=== PATIENT | female | born 1950 | race Native Hawaiian/Other Pacific Islander ===

== ENCOUNTER → 2017-01-16 | Outpatient (CLI) | payer MEDICARE ==
[2017-01-16 17:20] LABS: Basophils # (A) 0.1 k/uL (0-0.2); Basophils % (A) 1 %; CH 30.5; CHCM 31.9; Eosinophils # (A) 0.2 k/uL (0-0.7); Eosinophils % (A) 3 %; HCT 47.2 % (34.0-46.0); HDW 2.19; HGB 14.5 gm/dL (11.4-16.0); Luc # (Auto) 0.09; Luc % (Auto) 2; Lymphocytes % (A) 34 %; MCH 29.5 pg (25.0-35.0); MCHC 30.7 g/dL (31.0-37.0); MCV 96.1 fL (80.0-100.0); Mean Platelet Volume 8.7; Monocytes # (A) 0.3 k/uL (0-1.0); Monocytes % (A) 5 %; Neutrophils # (A) 3.3 k/uL (1.3-7.7); Neutrophils % (A) 56 %; RBC 4.91 m/uL (3.80-5.40); RDW 13.9 % (11.5-15.5); WBC (Perox) 5.89
[2017-01-16 17:23] LABS: ALT 32 U/L (9-52); AST 24 U/L (14-36); Alkaline Phosphatase 103 U/L (38-126); Anion Gap 14 mmol/L; Blood Urea Nitrogen 22 mg/dL (7-17); Calcium 9.3 mg/dL (8.4-10.2); Carbon Dioxide 21 mmol/L (22-30); Chloride 110 mmol/L (98-107); Cholesterol 171 mg/dL (<200); Glucose 102 mg/dL (74-99); HDL Cholesterol 47 mg/dL (40-60); Non-African American GFR(MDRD) >60 (>60 ml/min/1.73 sqM); Potassium 4.5 mmol/L (3.5-5.1); Sodium 145 mmol/L (137-145); Total Bilirubin 0.7 mg/dL (0.2-1.3); Total Protein 7.1 g/dL (6.3-8.2)
== END ==
LOC: MMGSC 10:22
PROVIDERS: ATTEND Family Medicine
DX: Z00.00 Encounter for general adult medical examination without abnormal findings (principal); E55.9 Vitamin D deficiency, unspecified
CPT/HCPCS: 36415; 80053; 80061; 82306; 84439; 84443; 85025

== ENCOUNTER → 2020-04-16 | Outpatient (CLI) | payer MEDICARE ==
--- NOTE | 2020-04-16 10:16 | US ---
EXAMINATION TYPE: US carotid duplex BILAT DATE OF EXAM: 04/16/2020 COMPARISON: NONE CLINICAL HISTORY: H53.8 Visual disturbance, R07.89 Atypical chest pa. Visual disturbance, chest pain EXAM MEASUREMENTS: RIGHT: Peak Systolic Velocity (PSV) cm/sec ----- Right CCA: 87.7 ----- Right ICA: 110.9 ----- Right ECA: 104.4 ICA/CCA ratio: 1.3 RIGHT: End Diastole cm/sec ----- Right CCA: 29.3 ----- Right ICA: 44.8 ----- Right ECA: 18.9 LEFT: Peak Systolic Velocity (PSV) cm/sec ----- Left CCA: 90.1 ----- Left ICA: 89.9 ----- Left ECA: 46.1 ICA/CCA ratio: 1.0 LEFT: End Diastole cm/sec ----- Left CCA: 27.2 ----- Left ICA: 27.1 ----- Left ECA: 6.8 VERTEBRALS (direction of flow): Right Vertebral: Antegrade Left Vertebral: Antegrade Rhythm: Normal Grayscale, color Doppler, spectral Doppler imaging performed. Waveform analysis does not show signifi cant stenosis of the internal carotid arteries. No significant stenosis seen, Left ICA and ECA dive d own, difficult to visualize well IMPRESSION: No hemodynamic significant stenosis of the proximal internal carotid arteries by Doppler criteria, an indirect measurement of carotid stenosis Criteria for Assigning % of Stenosis / Diameter reduction (Estimation based on the indirect measurements of the internal carotid artery velocities (ICA PSV). 1. Normal (no stenosis)=ICA PSV < 125 cm/s: ratio < 2.0: ICA EDV<40 cm/s. 2. Less than 50% stenosis=ICA PSV < 125 cm/s: ratio < 2.0: ICA EDV<40 cm/s. 3. 50 to 69% stenosis=ICA PSV of 125 to 230 cm/s: ration 2.0 ? 4.0: ICA EDV 40-100 cm/s. 4. Greater than 70% stenosis to near occlusion= ICA PSV > 230 cm/s: ratio > 4.0: ICA EDV > 100 cm/s. 5. Near occlusion= ICA PSV velocities may be low or undetectable: variable ratio and ICA EDV. 6. Total occlusion=unable to detect flow.
--- NOTE | 2020-04-16 15:44 | P.STRESS ---
- Stress Test Note Stress Test Results/Findings: Exam Performed: stress echo exercise Exam Date: 04/16/20 Reason for Exam: CHEST PAIN Height: 5 ft 4 in Weight: 81.647 kg Protocol: ALEJANDRO Stage: 2 Duration of Exercise: 6:00 Resting Heart Rate: 60 Resting Blood Pressure: 116/57 Maximum Achieved Heart Rate: 141 Maximum Achieved Blood Pressure: 152/101 85% PMHR: 127 100% PMHR: 149 METS: 7.1 Technologist Comment: Stress Test Results/Findings: Baseline heart rate 60 beats a minute Baseline blood pressure 116/57 mmHg Baseline twelve-lead ECG shows sinus rhythm normal ST segments Patient exercised on a Alejandro protocol for 6 minutes achieving a peak heart rate of 141 beats a minute. Normal blood pressure response, systolic Diastolic blood pressure is about 91 mmHg Rate related right bundle branch block aberrancy left anterior fascicular block and a heart rate of about 120 beats a minute During recovery. The heart rate fell below 100 beats a minute normalization of care was noted No definite ECG was for ischemia Baseline 2-D echo showed normal LV systolic function without segmental wall motion abnormalities At peak exercise is excellent augmentation of overall LV contractility without development of any wall motion amenities @Recovery regional global LV systolic function with normal Impression Average exercise capacity, shortness of breath with exertion Right bundle branch block aberrancy at a heart rate of 120 beats a minute No ECG or echocardiographic evidence for ischemia
== END | disposition home or self-care (01) ==
LOC: RADUSMAIN 09:08
PROVIDERS: ATTEND Family Medicine
DX: I45.2 Bifascicular block (principal); G44.209 Tension-type headache, unspecified, not intractable; H53.8 Other visual disturbances
CPT/HCPCS: 93351; 93880

== ENCOUNTER → 2024-08-30 | Outpatient (CLI) | payer MEDICARE ==
--- NOTE | 2024-08-30 15:38 | CT ---
EXAMINATION TYPE: CT wrist LT wo con DATE OF EXAM: 08/30/2024 COMPARISON: None CLINICAL INDICATION: Female, 73 years old with history of S52.572A OTH INTARTIC FRACTURE OF LOWER END OF LEF; PHH, fracture, left wrist CT DLP: 102.2 mGycm Automated exposure control for dose reduction was used. FINDINGS: There is a mildly displaced markedly comminuted intra-articular fracture of the distal left radius. T here is a nondisplaced fracture of the ulnar styloid. The carpal bones and articulations are normal. There is no radiopaque foreign body. IMPRESSION: Markedly comminuted mildly displaced intra-articular fracture of the distal left radius. Mildly disp laced fracture of the ulnar styloid process. [facility], , 08/30/2024 3:36 PM
== END | disposition home or self-care (01) ==
LOC: RADCTMAIN 13:28
PROVIDERS: ATTEND Orthopaedic Surgery
DX: S52.572A Other intraarticular fracture of lower end of left radius, initial encounter for closed fracture (principal); S52.612A Displaced fracture of left ulna styloid process, initial encounter for closed fracture